=== PATIENT | male | born 1990 | race Caucasian/White ===

== ENCOUNTER 2025-04-19 11:55 | Emergency (ER) | payer SELFPAY ==
[~2025-04-19] VITALS: Ht 172.7 cm; Wt 65.2 kg
[2025-04-19] MEDS: DOXYCYCLINE HYCLATE 100 MG TABLET PO ONE (16:22)
[2025-04-19 16:38] LABS: BASO # 0.1 10^3/uL (0.0-0.2); BASO % 0.9 % (0.0-1.0); EOS # 0.1 10^3/uL (0.0-0.5); EOS % 1.0 % (0.0-3.0); LYMPH # 1.5 10^3/uL (1.5-5.0); LYMPH % 16.7 % (24.0-44.0); MONO # 0.5 10^3/uL (0.0-0.8); MONO % 5.4 % (2.0-8.0); NEUTROPHILS # 6.6 10^3/uL (1.5-8.5); NEUTROPHILS % 75.8 % (36.0-66.0); PLATELET COUNT, AUTOMATED 261 10^3/uL (150-450)
[2025-04-19 17:03] LABS: ALT/SGPT 30 U/L (7.0-40); AST/SGOT 35 U/L (<34); CALCIUM LEVEL 9.6 MG/DL (8.5-10.1); CARBON DIOXIDE LEVEL 29 MMOL/L (20-31); CHLORIDE LEVEL 100 MMOL/L (98-107); CREATININE FOR GFR 1.02 MG/DL (0.70-1.30); GLOMERULAR FILTRATION RATE > 90.0 (>60); POTASSIUM SERUM 4.2 MMOL/L (3.5-5.1); SODIUM LEVEL 138 MMOL/L (136-145)
[2025-04-19] MEDS ORDERED: DOXY-441 PO (17:58)
[2025-04-19 18:04] VITALS: BP 134/85; TEMP 97.4; O2SAT 98
== END 2025-04-19 18:06 | disposition home or self-care (01) ==
LOC: M ED 11:55
DX: R63.4 Abnormal weight loss (principal); L98.8 Other specified disorders of the skin and subcutaneous tissue; F19.10 Other psychoactive substance abuse, uncomplicated